=== PATIENT | female | born 1985 | race Caucasian/White ===

== ENCOUNTER 2016-11-14 01:49 | Inpatient (IN) | payer OTHER ==
[~2016-11-14] VITALS: Ht 162.6 cm; Wt 54.5 kg
[~2016-11-14 01:49] MED LIST: ADDERALL20 MG PO; ANUSOL HC,ANUCO25 MG PR; ATHENOL325 MG PO; ATIVAN1 MG PO; BACLOFEN10 MG PO; BENTYL10 MG PO; BENZTROPINE MESY2 MG PO; CLONIDINE HCL0.1 MG PO; DAILY VALUE1 EACH PO; DOXYCYCLINE HY100 M3 PO; FLAGYL500 MG PO; FLEXERIL10 MG PO; FLEXERIL5 MG PO; HYDROCODON-ACE1 EAC7 PO; IBUPROFEN800 MG PO; INDOCIN25 MG PO; MACROBID100 MG PO; MEDROL DOSEPAK4 MG PO; MELOXICAM15 MG PO; MOBIC15 MG PO; MOBIC7.5 MG PO; MORPHINE SULFAT15 M1 PO; MOTRIN600 MG PO; Motrin PO; NAPROSYN500 MG PO; NAPROXEN500 MG PO; NIGHT TIME COL180 ML PO; NOHOMEMEDS; NORCO 5/3251 TABLET PO; NORCO 7.5/321 TABLET PO; PERCOCET 5/31 TABLET PO; PERCOCET 7.51 TABLET PO; PRENATABS FA T1 EACH PO; PRENATAL1 EACH PO; PROCARDIA10 MG PO; PROCTOFOAM-HC10 GM PR; Percocet 5/325,Endoc PO; RISPERDAL1 MG PO; SOMA350 MG PO; TRAMADOL HCL50 MG PO; TRAZODONE HCL100 MG PO; TRAZODONE HCL50 MG PO; TRILEPTAL75 MG PO; ULTRAM50 MG PO; VALIUM; VALIUM2 MG PO; VALIUM5 MG PO; VIBRAMYCIN50 MG/5 ML PO; ZANTAC150 MG PO; ZITHROMAX250 MG PO; ZOFRAN ODT4 MG PO
[2016-11-14 02:56] LABS: HEMATOCRIT 36.4 % (36.0-46.0); MCH 29.8 PG (29.0-34.0); MCHC 33.8 G/DL (30.0-36.0); MCV 88.1 FL (83-99); MEAN PLAT.VOLUME 10.9 uM^3 (9.5-12.4); PLATELET COUNT 183 K/uL (156-360); RBC DIS.WIDTH-CV 12.8 % (11.8-14.6); RBC DIS.WIDTH-SD 41.3 % (39-53); RED BLOOD COUNT 4.13 M/uL (3.80-5.20); WHITE BLOOD COUNT 8.2 K/uL (4.1-10.2)
[2016-11-14 03:15] LABS: CHLORIDE 96 mEq/L (99-109); POTASSIUM 2.8 mEq/L (3.7-5.4); SODIUM 133 mEq/L (136-147)
[2016-11-14 03:16] LABS: GLUCOSE 141 mg/dL (70-99)
[2016-11-14 03:18] LABS: ANION GAP 11 MEQ/L (2-14)
[2016-11-14 03:20] LABS: GFR ESTIMATE (CALCULATED) > 59 mL/min/
[2016-11-14 03:21] LABS: UREA NITROGEN (BUN) 8 mg/dL (9-23)
[2016-11-14 06:34] LABS: AMPHETAMINE NEGATIVE (500 ng/mL); BARBITURATES NEGATIVE (200 ng/mL); BENZODIAZEPINES PRESUMPTIVE POSITIVE (150 ng/mL); COCAINE PRESUMPTIVE POSITIVE (150 ng/mL); INTERNAL CONTROLS VALID? YES; METHADONE NEGATIVE (200 ng/mL); METHAMPHETAMINE NEGATIVE (500 ng/mL); OPIATES (MORPHINE) PRESUMPTIVE POSITIVE (100 ng/mL); OXYCODONE NEGATIVE (100 ng/mL); PHENCYCLIDINE NEGATIVE (25 ng/mL); PROPOXYPHENE NEGATIVE (300 ng/mL); THC CANNABINOIDS PRESUMPTIVE POSITIVE (50 ng/mL); TRICYCLIC ANTIDEPRESSANTS NEGATIVE (300 ng/mL)
[2016-11-14 06:36] LABS: ADD MEDTOX COMMENT Y
[2016-11-14 07:33] LABS: BENZODIAZEPINES, URINE SCREEN Negative (200 ng/mL)
[2016-11-14 08:32] VITALS: BP 122/72
[2016-11-14 12:01] VITALS: BP 120/70
[2016-11-14 13:03] LABS: ANION GAP 9 MEQ/L (2-14); CHLORIDE 101 MEQ/L (99-109); GFR ESTIMATE (CALCULATED) > 59 mL/min/; GLUCOSE 127 mg/dL (70-99); SAMPLE HEMOLYSIS CHECK 0; SAMPLE ICTERIC CHECK 0; SAMPLE LIPEMIA CHECK 0; SODIUM 136 MEQ/L (136-147); UREA NITROGEN (BUN) 6 mg/dL (9-23)
[2016-11-14 13:06] LABS: POTASSIUM 3.9 MEQ/L (3.7-5.4)
[2016-11-14 15:55] VITALS: BP 109/67
[2016-11-14 20:06] VITALS: BP 116/72
[2016-11-14 23:40] VITALS: BP 120/75
[2016-11-15 05:15] VITALS: BP 117/72
[2016-11-15 06:40] LABS: EOSINOPHIL (%) 0.4 % (0-5); HEMATOCRIT 31.6 % (36.0-46.0); IMMATURE GRANULOCYTE COUNT 0.1 K/uL; INSTRUMENT ABS NEUTROPHIL CT 4.4 K/uL; LYMPHOCYTE COUNT 2.1 K/uL (1.0-2.8); MCH 29.9 PG (29.0-34.0); MCHC 33.5 G/DL (30.0-36.0); MONOCYTE (%) 7.9 % (3-12); MONOCYTE COUNT 0.6 K/uL (0-0.8); NEUTROPHIL (%) 60.7 % (45-76); NEUTROPHIL COUNT 4.4 K/uL (1.8-6.4); PLATELET COUNT 178 K/uL (156-360); RBC DIS.WIDTH-CV 13.2 % (11.8-14.6); RBC DIS.WIDTH-SD 43.7 % (39-53); RED BLOOD COUNT 3.55 M/uL (3.80-5.20); WHITE BLOOD COUNT 7.2 K/uL (4.1-10.2)
[2016-11-15 07:05] LABS: ANION GAP 5 MEQ/L (2-14); CHLORIDE 102 MEQ/L (99-109); GFR ESTIMATE (CALCULATED) > 59 mL/min/; GLUCOSE 123 mg/dL (70-99); POTASSIUM 3.7 MEQ/L (3.7-5.4); SAMPLE HEMOLYSIS CHECK 0; SAMPLE ICTERIC CHECK 0; SAMPLE LIPEMIA CHECK 0; SODIUM 136 MEQ/L (136-147); UREA NITROGEN (BUN) 7 mg/dL (9-23)
[2016-11-15 07:35] VITALS: BP 111/65
[2016-11-15 08:13] LABS: HPCA INDEX 0.14
[2016-11-15 10:39] VITALS: BP 122/89
[2016-11-15 15:57] VITALS: BP 106/58
[2016-11-15 19:28] VITALS: BP 108/60
[2016-11-15 20:23] LABS: QUANTITATIVE HCG < 4.0 MIU/ML
[2016-11-15 23:59] VITALS: BP 122/64
[2016-11-16 06:52] LABS: ANION GAP 7 MEQ/L (2-14); CHLORIDE 101 MEQ/L (99-109); GFR ESTIMATE (CALCULATED) > 59 mL/min/; GLUCOSE 140 mg/dL (70-99); POTASSIUM 4.4 MEQ/L (3.7-5.4); SAMPLE HEMOLYSIS CHECK 0; SAMPLE ICTERIC CHECK 0; SAMPLE LIPEMIA CHECK 0; SODIUM 140 MEQ/L (136-147); UREA NITROGEN (BUN) 7 mg/dL (9-23)
[2016-11-16 06:58] LABS: HEMATOCRIT 36.6 % (36.0-46.0); MCH 30.1 PG (29.0-34.0); MCHC 33.3 G/DL (30.0-36.0); MCV 90.4 FL (83-99); MEAN PLAT.VOLUME 11.2 uM^3 (9.5-12.4); RBC DIS.WIDTH-CV 13.4 % (11.8-14.6); RBC DIS.WIDTH-SD 44.7 % (39-53); RED BLOOD COUNT 4.05 M/uL (3.80-5.20); WHITE BLOOD COUNT 9.7 K/uL (4.1-10.2)
[2016-11-16 06:59] LABS: PLATELET COUNT 237 K/uL (156-360)
[2016-11-16 07:07] LABS: VANCOMYCIN, TROUGH < 2.0 MCG/ML (10-20)
[2016-11-16 08:04] VITALS: BP 105/65
[2016-11-16 12:19] VITALS: BP 100/57
[2016-11-16 16:12] VITALS: BP 119/64
[2016-11-16 19:09] VITALS: BP 115/70
[2016-11-17] VITALS (7 sets, daily range): BP systolic 101–122; BP diastolic 56–75
[2016-11-17 07:16] LABS: ANION GAP 6 MEQ/L (2-14); CHLORIDE 99 MEQ/L (99-109); GFR ESTIMATE (CALCULATED) > 59 mL/min/; SAMPLE HEMOLYSIS CHECK 0; SAMPLE ICTERIC CHECK 0; SAMPLE LIPEMIA CHECK 0; SODIUM 138 MEQ/L (136-147); UREA NITROGEN (BUN) 8 mg/dL (9-23)
[2016-11-17 07:22] LABS: GLUCOSE 89 mg/dL (70-99); POTASSIUM 5.3 MEQ/L (3.7-5.4)
[2016-11-18 06:48] LABS: HEMATOCRIT 39.7 % (36.0-46.0); MCHC 32.7 G/DL (30.0-36.0); MCV 91.7 FL (83-99); MEAN PLAT.VOLUME 10.6 uM^3 (9.5-12.4); RBC DIS.WIDTH-CV 13.6 % (11.8-14.6); RED BLOOD COUNT 4.33 M/uL (3.80-5.20); WHITE BLOOD COUNT 7.4 K/uL (4.1-10.2)
[2016-11-18 06:50] LABS: PLATELET COUNT 376 K/uL (156-360)
[2016-11-18 06:55] LABS: ANION GAP 6 MEQ/L (2-14); CHLORIDE 103 MEQ/L (99-109); GFR ESTIMATE (CALCULATED) > 59 mL/min/; GLUCOSE 78 mg/dL (70-99); POTASSIUM 5.6 MEQ/L (3.7-5.4); SAMPLE HEMOLYSIS CHECK 0; SAMPLE ICTERIC CHECK 0; SAMPLE LIPEMIA CHECK 0; SODIUM 139 MEQ/L (136-147); UREA NITROGEN (BUN) 14 mg/dL (9-23)
[2016-11-18 16:02] VITALS: BP 119/67
[2016-11-18 23:46] VITALS: BP 106/62
[2016-11-19 06:48] LABS: ANION GAP 5 MEQ/L (2-14); CHLORIDE 104 MEQ/L (99-109); GFR ESTIMATE (CALCULATED) > 59 mL/min/; GLUCOSE 90 mg/dL (70-99); SAMPLE HEMOLYSIS CHECK 0; SAMPLE ICTERIC CHECK 0; SAMPLE LIPEMIA CHECK 0; SODIUM 138 MEQ/L (136-147); UREA NITROGEN (BUN) 13 mg/dL (9-23)
[2016-11-19 06:51] LABS: POTASSIUM 4.4 MEQ/L (3.7-5.4)
[2016-11-19 07:52] VITALS: BP 112/69
== END 2016-11-19 13:23 | disposition left against medical advice (07) | DRG 872 ==
LOC: EME 01:49 → 3EAST 05:07 → EDOF 05:07 → 3EAST 06:54
PROVIDERS: Emergency Medicine; Hospitalist; Internal Medicine
DX: A41.01 Sepsis due to Methicillin susceptible Staphylococcus aureus (principal); L03.115 Cellulitis of right lower limb; E87.6 Hypokalemia; E87.2 Acidosis; F41.9 Anxiety disorder, unspecified; F11.20 Opioid dependence, uncomplicated; F17.200 Nicotine dependence, unspecified, uncomplicated; M79.7 Fibromyalgia; F32.9 Major depressive disorder, single episode, unspecified; G89.29 Other chronic pain; M54.9 Dorsalgia, unspecified; F14.90 Cocaine use, unspecified, uncomplicated; I80.9 Phlebitis and thrombophlebitis of unspecified site; T36.0X5A Adverse effect of penicillins, initial encounter
CPT/HCPCS: 73630; 73701; 80048; 80048 91; 80202; 83605; 84702; 84999; 85025; 85027; 86803; 87040; 87077; 87147; 87186; 87801; 93306; 93971; 99281; 99285; J1650; J1885; J2543; J3370; J7030; J7050; J7120; S0032

== ENCOUNTER 2017-04-18 19:12 | Emergency (ER) | payer SELFPAY ==
[~2017-04-18] VITALS: Ht 162.6 cm; Wt 55.2 kg
[2017-04-18] MEDS ORDERED: NARCAN4 MG NS (21:19)
[2017-04-18 22:14] VITALS: BP 116/73
== END 2017-04-18 22:15 | disposition home or self-care (01) ==
LOC: EME 19:12
DX: T40.2X1A Poisoning by other opioids, accidental (unintentional), initial encounter (principal); F11.10 Opioid abuse, uncomplicated; F43.10 Post-traumatic stress disorder, unspecified; F17.200 Nicotine dependence, unspecified, uncomplicated; Z88.6 Allergy status to analgesic agent
CPT/HCPCS: 80053; 81003; 84702; 85027; 99281; 99284; G0480; J2310

== ENCOUNTER 2017-08-16 04:11 | Emergency (ER) | payer SELFPAY ==
[~2017-08-16] VITALS: Ht 162.6 cm; Wt 55.7 kg
[~2017-08-16 04:11] MED LIST changes: +NARCAN4 MG NS
[2017-08-16 05:30] VITALS: BP 132/78
== END 2017-08-16 05:31 | disposition left against medical advice (07) ==
LOC: EME → EDBD 04:11 → EME 04:11
DX: T40.1X1A Poisoning by heroin, accidental (unintentional), initial encounter (principal); R11.2 Nausea with vomiting, unspecified; Z53.20 Procedure and treatment not carried out because of patient's decision for unspecified reasons; F17.200 Nicotine dependence, unspecified, uncomplicated
CPT/HCPCS: 99281; 99283; J2310